=== PATIENT | female | born 1995 | race Caucasian/White ===

== ENCOUNTER 2018-12-16 19:00 | Inpatient (IN) | payer SELFPAY ==
[2018-12-16 19:32] VITALS: BMI 21.0
--- NOTE | 2018-12-16 19:32 | PDOC ---
Rapid Medical Evaluation Chief Complaint: SIRS, Suspected/Possible Medical Evaluation: Allergies Allergy/AdvReac Type Severity Reaction Status Date / Time No Known Allergies Allergy Verified 12/16/18 19:26 I have performed a brief in-person evaluation of this patient. The patient presents with a chief complaint of: c/o fever, upper abdominal pain and hematuria x 3 days Pertinent physical exam findings: appears sick, +R cva tenderness I have ordered the following: labs, ivf The patient will proceed to the ED for further evaluation. 12/16/18 19:29
[2018-12-16] MEDS ORDERED: ACETAMINOPHEN 1000 MG/100 ML VIAL (NON FORMULARY) IVPB ONE (19:33)
[2018-12-16] MEDS ORDERED: SODIUM CHLORIDE 1,000 ML IV STA (19:33)
[2018-12-16] MEDS ORDERED: ACETAMINOPHEN INJECTION 100 ML IVPB ONE (20:16)
[2018-12-16 20:40] LABS: BASO % 0.5 % (0-2.0); EOS % 0.1 % (0-4.5); HEMATOCRIT 35.3 % (32.4-45.2); HEMOGLOBIN 11.3 GM/dL (10.7-15.3); MCH 25.5 pg (25.7-33.7); MEAN CELL VOLUME 79.6 fl (80-96); MEAN PLT VOLUME 7.9 fl (7.5-11.1); NEUT % 85.4 % (42.8-82.8); PLATELET COUNT 272 K/MM3 (134-434); RBC 4.43 M/mm3 (3.60-5.2); RDW 15.1 % (11.6-15.6); WHITE BLOOD COUNT 14.9 K/mm3 (4.0-10.0)
[2018-12-16 20:57] LABS: EPI CELLS 2.2 /HPF (0-5/HPF); HYALINE CASTS 47 /lpf (0-8); URINE APPEARANCE TURBID; URINE BACTERIA 5835.3 /hpf (NEGATIVE); URINE BILIRUBIN NEGATIVE (NEGATIVE); URINE COLOR YELLOW; URINE GLUCOSE (UA) NEGATIVE (NEGATIVE); URINE KETONE 2+ (NEGATIVE); URINE LEUK ESTERASE 2+ (NEGATIVE); URINE NITRITE POSITIVE (NEGATIVE); URINE PROTEIN 1+ (NEGATIVE); URINE RBC 18 /hpf (0-4); URINE UROBILINOGEN 0.2 mg/dL (0.2-1.0); URINE WBC 179 /hpf (0-5)
[2018-12-16 21:14] LABS: ALBUMIN 3.9 g/dl (3.4-5.0); BILIRUBIN,TOTAL 0.4 mg/dL (0.2-1); BLOOD UREA NITROGEN 8.4 mg/dL (7-18); CALCIUM 8.9 mg/dL (8.5-10.1); CREATININE 0.9 mg/dL (0.55-1.3); POTASSIUM 3.7 mmol/L (3.5-5.1); TOT PROT 7.6 g/dl (6.4-8.2)
--- NOTE | 2018-12-16 21:17 | PDOC ---
Attending Attestation - Resident Resident Name: Davy Estrella - ED Attending Attestation I have performed the following: I have examined & evaluated the patient, The case was reviewed & discussed with the resident, I agree w/resident's findings & plan - HPI HPI: 12/16/18 23:24 see resident hpi - Physicial Exam PE: 12/16/18 23:24 see resident hpi - Medical Decision Making 12/16/18 23:24 22-year-old female with fever or flank pain and suprapubic pain CT scan consistent with cystitis IV fluid 2 L bolus as well as Zosyn administered in the emergency department In reevaluation at 11:24 PM patient is feeling much better with some residual abdominal tenderness Plan for lactic acid review and pelvic exam for further evaluation Ultrasound as needed Due to patient's age and improvement she will likely be discharged home pending results
[2018-12-16] MEDS ORDERED: PIPERACILLIN/TAZOB 4.5 GM 4.5 GM in DEXTROSE 5%-WATER 100 ML IVPB ONE ×2 (21:32→23:15)
[2018-12-16] MEDS ORDERED: LACTATED RINGERS SOLUTION 1000 ML INFUS.BAG IV ONE (21:32)
--- NOTE | 2018-12-16 21:38 | PDOC ---
History of Present Illness - General Chief Complaint: SIRS, Suspected/Possible Stated Complaint: FEVER/HEADACHE/ABD/PAIN Time Seen by Provider: 12/16/18 19:29 - History of Present Illness Initial Comments: 12/16/18 21:34 22f with pmh presents with headache, body aches, abdominal pain, vomiting, dysuria and hematuria for the past 3 days. In addition she endorses one episode of vomiting. Last moved her bowels 2 days ago. lmp: December 05. Past History - Past Medical History Allergies/Adverse Reactions: Allergies Allergy/AdvReac Type Severity Reaction Status Date / Time No Known Allergies Allergy Verified 12/16/18 19:26 Home Medications: Ambulatory Orders NK [No Known Home Medication] 12/16/18 COPD: No - Suicide/Smoking/Psychosocial Hx Smoking History: Never smoked Review of Systems - Review of Systems Able to Perform ROS?: Yes Is the patient limited Chinese proficient: No Constitutional: Yes: Chills, Fever HEENTM: No: Symptoms Reported Respiratory: No: Symptoms reported Cardiac (ROS): No: Symptoms Reported ABD/GI: Yes: See HPI : No: Symptoms Reported Musculoskeletal: No: Symptoms Reported Integumentary: No: Symptoms Reported Neurological: No: Symptoms reported All Other Systems: Reviewed and Negative *Physical Exam - Vital Signs Last Vital Signs Temp Pulse Resp BP Pulse Ox 102.9 F H 138 H 18 125/72 100 12/16/18 19:27 12/16/18 19:27 12/16/18 19:27 12/16/18 19:27 12/16/18 19:27 - Physical Exam General Appearance: Yes: Nourished, Appropriately Dressed. No: Apparent Distress HEENT: positive: EOMI, CECILIA, Normal ENT Inspection Respiratory/Chest: positive: Lungs Clear, Normal Breath Sounds. negative: Chest Tender, Respiratory Distress Cardiovascular: positive: Tachycardia Female Pelvic Exam: positive: normal external exam, CMT (questionable as everything was tender. ), discharge (bloody), vaginal bleeding, other ( generalized vaginal tenderness. ) Gastrointestinal/Abdominal: positive: Normal Bowel Sounds, Tender (across lower abdomen), Flat, Soft Musculoskeletal: positive: CVA Tenderness (R) Extremity: positive: Normal Capillary Refill, Normal Inspection, Normal Range of Motion Integumentary: positive: Normal Color, Warm, Diaphoresis Neurologic: positive: Fully Oriented, Alert, Normal Mood/Affect, Normal Response ED Treatment Course - LABORATORY CBC & Chemistry Diagram: 12/16/18 20:30 12/16/18 20:30 - ADDITIONAL ORDERS Additional order review: Laboratory Results 12/16/18 12/16/18 12/16/18 20:30 20:30 20:30 Sodium 137 Potassium 3.7 Chloride 100 Carbon Dioxide 25 Anion Gap 11 BUN 8.4 Creatinine 0.9 Est GFR (CKD-EPI)AfAm 106.68 Est GFR (CKD-EPI)NonAf 92.04 Random Glucose 106 Calcium 8.9 Total Bilirubin 0.4 AST 15 ALT 15 Alkaline Phosphatase 73 Total Protein 7.6 Albumin 3.9 Urine Color Yellow Urine Appearance Turbid Urine pH 5.0 Ur Specific [place] 1.024 Urine Protein 1+ H Urine Glucose (UA) Negative Urine Ketones 2+ H Urine Blood 3+ H Urine Nitrite Positive H Urine Bilirubin Negative Urine Urobilinogen 0.2 Ur Leukocyte Esterase 2+ H Urine WBC (Auto) 179 Urine RBC (Auto) 18 Urine Casts (Auto) 47 U Epithel Cells (Auto) 2.2 Urine Bacteria (Auto) 5835.3 Urine HCG, Qual Negative 12/16/18 20:30 RBC 4.43 MCV 79.6 L MCHC 32.0 RDW 15.1 MPV 7.9 Neutrophils % 85.4 H Lymphocytes % 6.0 L Monocytes % 8.0 Eosinophils % 0.1 Basophils % 0.5 - RADIOLOGY Radiology Studies Ordered: Category Date Time Status SPIRAL- RENAL-STONE CT [CT] Stat CT Scan 12/16/18 21:31 Ordered - Medications Given in the ED: ED Medications Discontinued Medications Generic Name Dose Route Start Last Admin Trade Name Freq PRN Reason Stop Dose Admin Acetaminophen 1,000 mg 12/16/18 19:33 12/16/18 20:33 Ofirmev Injection - IVPB 12/16/18 19:34 1,000 mg ONCE ONE Administration Sodium Chloride 1,000 mls @ 1,000 mls/hr 12/16/18 19:33 12/16/18 20:33 Normal Saline - IV 12/16/18 20:32 1,000 mls/hr ASDIR STA Administration Medical Decision Making - Medical Decision Making 12/16/18 22:33 22F septic, septic order set ordered. POCUS at bedside didn;tshow evidence of Pelvic free lfuid of hydronephrosis or kidney stones. Will obtain spiral CT. 12/16/18 22:[address] evidence of urolithiasis or hydronephrosis. A 2 mm calcification is seen within the left inferior pelvis adjacent to the ureterovesical junction probably representing an incidental phlebolith, less likely a nonobstructing calculus. Correlate clinically. If clinically indicated additional evaluation utilizing multiphase contrast-enhanced CT/CT urography may be performed. Mild diffuse urinary bladder wall thickening is noted which may be on the basis of acute or chronic cystitis. Clinical/laboratory correlation is suggested. Will treat with ceftriaxone and fluid. 12/16/18 23:47 Pelvic exam was performed to r/o PID due to underwhelming ct read. Generalized exquisite vaginal tenderness during the exam Sending straight cathed UA/UC. If urine is clean, UTi will be ruled out and PID will be treated. 12/17/18 00:11 Patient signed out to Dr. Vargas. *DC/Admit/Observation/Transfer Diagnosis at time of Disposition: Sepsis - Referrals - Patient Instructions - Post Discharge Activity
[2018-12-16] MEDS ORDERED: CEFTRIAXONE 500 MG in DEXTROSE 5%-WATER - 50 ML IVPB ONE (23:10)
--- NOTE | 2018-12-17 00:14 | PDOC ---
*Physical Exam - Vital Signs Last Vital Signs Temp Pulse Resp BP Pulse Ox 98.8 F 86 19 105/67 98 12/16/18 23:09 12/16/18 23:09 12/16/18 23:09 12/16/18 23:12/16/18 23:09 - Physical Exam Comments: 12/17/18 04:03 PE: GENERAL: Awake, alert, and fully oriented, in no acute distress HEAD: No signs of trauma, normocephalic, atraumatic EYES: PERRLA, EOMI, sclera anicteric, conjunctiva clear ENT: Auricles normal inspection, hearing grossly normal, nares patent, oropharynx clear without exudates. Moist mucosa NECK: Normal ROM, supple, no lymphadenopathy, JVD, or masses LUNGS: No distress, speaks full sentences, clear to auscultation bilaterally HEART: Regular rate and rhythm, normal S1 and S2, no murmurs, rubs or gallops, peripheral pulses normal and equal bilaterally. ABDOMEN: Lower abdomen tenderness. Soft, normoactive bowel sounds. No guarding , no rebound. No masses EXTREMITIES : Normal inspection, Normal range of motion, no edema. No clubbing or cyanosis NEUROLOGICAL: Cranial nerves II through XII grossly intact. Normal speech, normal gait, no focal sensorimotor deficits SKIN: Warm, Dry, normal turgor, no rashes or lesions noted ED Treatment Course - LABORATORY CBC & Chemistry Diagram: 12/16/18 20:30 12/16/18 20:30 - ADDITIONAL ORDERS Additional order review: Laboratory Results 12/16/18 12/16/18 12/16/18 23:00 20:30 20:30 Sodium Potassium Chloride Carbon Dioxide Anion Gap BUN Creatinine Est GFR (CKD-EPI)AfAm Est GFR (CKD-EPI)NonAf Random Glucose Lactic Acid 0.9 Calcium Total Bilirubin AST ALT Alkaline Phosphatase Total Protein Albumin Urine Color Yellow Urine Appearance Turbid Urine pH 5.0 Ur Specific [place] 1.024 Urine Protein 1+ H Urine Glucose (UA) Negative Urine Ketones 2+ H Urine Blood 3+ H Urine Nitrite Positive H Urine Bilirubin Negative Urine Urobilinogen 0.2 Ur Leukocyte Esterase 2+ H Urine WBC (Auto) 179 Urine RBC (Auto) 18 Urine Casts (Auto) 47 U Epithel Cells (Auto) 2.2 Urine Bacteria (Auto) 5835.3 Urine HCG, Qual Negative 12/16/18 20:30 Sodium 137 Potassium 3.7 Chloride 100 Carbon Dioxide 25 Anion Gap 11 BUN 8.4 Creatinine 0.9 Est GFR (CKD-EPI)AfAm 106.68 Est GFR (CKD-EPI)NonAf 92.04 Random Glucose 106 Lactic Acid Calcium 8.9 Total Bilirubin 0.4 AST 15 ALT 15 Alkaline Phosphatase 73 Total Protein 7.6 Albumin 3.9 Urine Color Urine Appearance Urine pH Ur Specific [place] Urine Protein Urine Glucose (UA) Urine Ketones Urine Blood Urine Nitrite Urine Bilirubin Urine Urobilinogen Ur Leukocyte Esterase Urine WBC (Auto) Urine RBC (Auto) Urine Casts (Auto) U Epithel Cells (Auto) Urine Bacteria (Auto) Urine HCG, Qual 12/16/18 20:30 RBC 4.43 MCV 79.6 L MCHC 32.0 RDW 15.1 MPV 7.9 Neutrophils % 85.4 H Lymphocytes % 6.0 L Monocytes % 8.0 Eosinophils % 0.1 Basophils % 0.5 - Medications Given in the ED: ED Medications Discontinued Medications Generic Name Dose Route Start Last Admin Trade Name Donte PRN Reason Stop Dose Admin Acetaminophen 1,000 mg 12/16/18 19:33 12/16/18 20:33 Ofirmev Injection - IVPB 12/16/18 19:34 1,000 mg ONCE ONE Administration Sodium Chloride 1,000 mls @ 1,000 mls/hr 12/16/18 19:33 12/16/18 20:33 Normal Saline - IV 12/16/18 20:32 1,000 mls/hr ASDIR STA Administration Medical Decision Making - Medical Decision Making 12/17/18 03:59 Sign out received from Dr. Estrella. 22 y/o F with no PMH p/w 3 days of headache, abdominal pain, dysuria, hematuria , vomiting, initially febrile and tachycardic with severe cervical motion tenderness and pooling blood in the vaginal vault on pelvic exam, concerning for UTI sepsis vs PID. Plan: UA (repeat, with straight cath) --- Second UA unremarkable, given concern for PID, possible abscess plan for TVUS. --- TVUS negative for acute process. 12/17/18 04:[address] Mchugh - patient admitted for PID, sepsis. *DC/Admit/Observation/Transfer Diagnosis at time of Disposition: Sepsis - Referrals - Patient Instructions - Post Discharge Activity
[2018-12-17 00:32] LABS: EPI CELLS 4.6 /HPF (0-5/HPF); HYALINE CASTS 2 /lpf (0-8); PH,URINE 5.5 (5.0-8.0); URINE APPEARANCE CLEAR; URINE BACTERIA 338.8 /hpf (NEGATIVE); URINE BILIRUBIN NEGATIVE (NEGATIVE); URINE COLOR YELLOW; URINE GLUCOSE (UA) NEGATIVE (NEGATIVE); URINE KETONE 2+ (NEGATIVE); URINE LEUK ESTERASE 1+ (NEGATIVE); URINE NITRITE NEGATIVE (NEGATIVE); URINE PROTEIN NEGATIVE (NEGATIVE); URINE RBC 1 /hpf (0-4); URINE UROBILINOGEN 0.2 mg/dL (0.2-1.0); URINE WBC 14 /hpf (0-5)
[2018-12-17] MEDS: ACETAMINOPHEN 325 MG TABLET (FP) PO PRN ×2 (09:15→16:59)
[2018-12-17] MEDS: LACTATED RINGERS SOLUTION 1,000 ML/1,000 ML INFUS.BAG IV SCH ×2 (09:15→16:59)
[2018-12-17] MEDS ORDERED: ACETAMINOPHEN 325 MG TABLET (FP) ONE (09:29)
--- NOTE | 2018-12-17 10:50 | EKG ---
Test Reason : Blood Pressure : / mmHG Vent. Rate : 130 BPM Atrial Rate : 130 BPM P-R Int : 140 ms QRS Dur : 070 ms QT Int : 290 ms P-R-T Axes : 056 065 019 degrees QTc Int : 426 ms SINUS TACHYCARDIA T WAVE ABNORMALITY, CONSIDER ANTERIOR ISCHEMIA ABNORMAL ECG NO PREVIOUS ECGS AVAILABLE Confirmed by Deangelo Carrasco MD ([id number]) on 12/17/2018 10:50:13 AM Referred By: Confirmed By:Deangelo Carrasco MD
[2018-12-18] MEDS: ACETAMINOPHEN 325 MG TABLET (FP) PO PRN ×3 (00:40→19:32)
[2018-12-18] MEDS: LACTATED RINGERS SOLUTION 1,000 ML/1,000 ML INFUS.BAG IV SCH ×3 (00:41→19:33)
--- NOTE | 2018-12-18 16:01 | HP ---
Admitting History and Physical - Admission Chief Complaint: Abdominal pain History of Present Illness: 22 yo Para 0, LMP 12/05/18, presented to ER c/o lower abdominal pain. She denies any nausea nor vomiting. She's sexually active without barrier contraception. Pelvic sonogram failed to show any pathology. But urinalysis showed evidence of nitrite. Patient was admitted for UTI and pelvic inflammatory disease. History Source: Patient Limitations to Obtaining History: No Limitations - Past Medical History ...LMP: 12/05/18 ...: No ...Para: 0 - Past Surgical History Past Surgical History: Yes: None - Smoking History Smoking history: Never smoked - Alcohol/Substance Use Hx Alcohol Use: No Home Medications - Allergies Allergies/Adverse Reactions: Allergies Allergy/AdvReac Type Severity Reaction Status Date / Time No Known Allergies Allergy Verified 12/16/18 19:26 - Home Medications Home Medications: Ambulatory Orders NK [No Known Home Medication] 12/17/18 Family Disease History - Family Disease History Family History: Unremarkable Review of Systems - Review of Systems Constitutional: reports: Fever Eyes: reports: No Symptoms HENT: reports: No Symptoms Neck: reports: No Symptoms Cardiovascular: reports: No Symptoms Respiratory: reports: No Symptoms Gastrointestinal: reports: No Symptoms Genitourinary: reports: No Symptoms Breasts: reports: No Symptoms Reported Musculoskeletal: reports: No Symptoms Integumentary: reports: No Symptoms Neurological: reports: No Symptoms Endocrine: reports: No Symptoms Hematology/Lymphatic: reports: No Symptoms Psychiatric: reports: No Symptoms Pain Intensity: 4 Physical Examination Vital Signs: Vital Signs Temperature 98.1 F 12/18/18 13:33 Pulse Rate 103 H 12/18/18 13:33 Respiratory Rate 18 12/18/18 13:33 Blood Pressure 105/66 12/18/18 13:33 O2 Sat by Pulse Oximetry (%) 100 12/18/18 09:00 Constitutional: Yes: Calm, Mild Distress Eyes: Yes: Conjunctiva Clear HENT: Yes: Atraumatic Neck: Yes: Supple, Trachea Midline Respiratory: Yes: Regular Gastrointestinal: Yes: Normal Bowel Sounds Musculoskeletal: Yes: WNL Neurological: Yes: Alert, Oriented ...Motor Strength: WNL Psychiatric: Yes: Alert, Oriented Labs: CBC, BMP 12/16/18 20:30 12/16/18 20:30 Problem List - Problems (1) Urinary tract infection Code(s): N39.0 - URINARY TRACT INFECTION, SITE NOT SPECIFIED Qualifiers: Encounter type: initial encounter (2) Pelvic inflammatory disease (PID) Code(s): N73.9 - FEMALE PELVIC INFLAMMATORY DISEASE, UNSPECIFIED Assessment/Plan Pelvic inflammatory disease Urinary tract infection Admit Continue IVF Tylenol PRN fever IV cefoxitin Doxycycline Regular diet
[2018-12-18] MEDS ORDERED: CEFOTETAN DISODIUM 1 GM in DEXTROSE 5%-WATER - 100 ML IVPB SCH (16:30)
[2018-12-18 17:06] LABS: BASO % 0.5 % (0-2.0); EOS % 0.8 % (0-4.5); HEMATOCRIT 33.5 % (32.4-45.2); HEMOGLOBIN 10.6 GM/dL (10.7-15.3); MCH 25.3 pg (25.7-33.7); MCHC 31.8 g/dl (32.0-36.0); MEAN CELL VOLUME 79.5 fl (80-96); MEAN PLT VOLUME 7.4 fl (7.5-11.1); MONO % 15.7 % (3.8-10.2); PLATELET COUNT 278 K/MM3 (134-434); RBC 4.21 M/mm3 (3.60-5.2); RDW 15.1 % (11.6-15.6); WHITE BLOOD COUNT 9.9 K/mm3 (4.0-10.0)
[2018-12-18 17:38] LABS: BLOOD UREA NITROGEN 5.2 mg/dL (7-18); CALCIUM 8.9 mg/dL (8.5-10.1); CREATININE 0.6 mg/dL (0.55-1.3); POTASSIUM 3.7 mmol/L (3.5-5.1)
[2018-12-18] MEDS: DOXYCYCLINE HYCLATE 100 MG CAPSULE PO SCH (18:44)
[2018-12-18] MEDS: CEFOXITIN SODIUM 1 GM in DEXTROSE 5%-WATER 100 ML IVPB SCH ×2 (18:44→22:39)
[2018-12-18] MEDS ORDERED: PT OWN MED DRAWER 7, Y5N ONE (18:52)
[2018-12-19] MEDS ORDERED: PT OWN MED DRAWER 7, Y5N ONE ×2 (01:45→14:56)
[2018-12-19] MEDS: CEFOXITIN SODIUM 1 GM in DEXTROSE 5%-WATER 100 ML IVPB SCH ×3 (03:28→14:57)
[2018-12-19] MEDS: LACTATED RINGERS SOLUTION 1,000 ML/1,000 ML INFUS.BAG IV SCH ×2 (09:58→20:44)
[2018-12-19] MEDS: DOXYCYCLINE HYCLATE 100 MG CAPSULE PO SCH ×2 (09:58→17:17)
--- NOTE | 2018-12-19 10:29 | PN ---
Progress Note, Physician History of Present Illness: 22 yo Para 0, LMP 12/05/18, presented to ER c/o lower abdominal pain. Patient was admitted for UTI and pelvic inflammatory disease. She's seen and evaluated. Doing well. She's afebrile. She desires discharge home. - Current Medication List Current Medications: Active Medications Acetaminophen (Tylenol -) 650 mg PO Q4H PRN PRN Reason: FEVER Last Admin: 12/18/18 19:32 Dose: 650 mg Doxycycline Hyclate (Vibramycin -) 100 mg PO BID@1000,1800 ERIKA Last Admin: 12/19/18 09:58 Dose: 100 mg Lactated Ringer's (Lactated Ringers Solution) 1,000 ml in 1,000 mls @ 125 mls/ hr IV ASDIR ERIKA Last Admin: 12/19/18 09:58 Dose: 125 mls/hr Cefoxitin Sodium 1 gm/ (Dextrose) 100 mls @ 200 mls/hr IVPB Q6H-IV ERIKA Stop: 12/19/18 17:29 Last Admin: 12/19/18 09:57 Dose: 200 mls/hr Cefoxitin Sodium 1 gm/ (Dextrose) 100 mls @ 200 mls/hr IVPB Q6H-IV ERIKA - Objective Vital Signs: Vital Signs Temperature 98.9 F 12/19/18 08:51 Pulse Rate 99 H 12/19/18 08:51 Respiratory Rate 20 12/19/18 08:52 Blood Pressure 135/94 12/19/18 08:51 O2 Sat by Pulse Oximetry (%) 100 12/19/18 08:52 Constitutional: Yes: No Distress Eyes: Yes: Conjunctiva Clear HENT: Yes: Atraumatic Neck: Yes: Supple Cardiovascular: Yes: Regular Rate and Rhythm Respiratory: Yes: Regular Gastrointestinal: Yes: Normal Bowel Sounds Genitourinary: Yes: WNL Breast(s): Yes: WNL Musculoskeletal: Yes: WNL Extremities: Yes: WNL Neurological: Yes: Alert, Oriented ...Motor Strength: WNL Psychiatric: Yes: Alert, Oriented Labs: CBC, BMP 12/18/18 16:45 12/18/18 16:45 Problem List - Problems (1) Urinary tract infection Code(s): N39.0 - URINARY TRACT INFECTION, SITE NOT SPECIFIED Qualifiers: Encounter type: initial encounter (2) Pelvic inflammatory disease (PID) Code(s): N73.9 - FEMALE PELVIC INFLAMMATORY DISEASE, UNSPECIFIED Assessment/Plan Pelvic inflammatory disease Urinary tract infection Consider D/C home on PO antibiotic
--- NOTE | 2018-12-19 10:35 | DS ---
Physical Examination Vital Signs: Vital Signs Temperature 98.9 F 12/19/18 08:51 Pulse Rate 99 H 12/19/18 08:51 Respiratory Rate 20 12/19/18 08:52 Blood Pressure 135/94 12/19/18 08:51 O2 Sat by Pulse Oximetry (%) 100 12/19/18 08:52 Constitutional: Yes: No Distress Eyes: Yes: Conjunctiva Clear HENT: Yes: Atraumatic Neck: Yes: Supple Cardiovascular: Yes: Regular Rate and Rhythm Respiratory: Yes: Regular Gastrointestinal: Yes: Normal Bowel Sounds, Soft. No: Vomiting Breast(s): Yes: WNL Neurological: Yes: Alert, Oriented Psychiatric: Yes: Alert, Oriented Labs: CBC, BMP 12/18/18 16:45 12/18/18 16:45 Discharge Summary Reason For Visit: ACUTE PELVIC INFLAMMATORY DISEASE,SEPSIS Current Active Problems Pelvic inflammatory disease (PID) (Acute) Sepsis (Acute) Urinary tract infection (Acute) Procedures: Principal: None Hospital Course: Patient admitted with diagnosis of PID and UTI. She was treated with IV antibiotic and discharge home with PO antibiotic. Condition: Good - Instructions Diet, Activity, Other Instructions: Regular diet Continue PO antibiotic F/U with [facility] as outpatient Disposition: HOME - Home Medications Comprehensive Discharge Medication List: Ambulatory Orders NK [No Known Home Medication] 12/17/18
[2018-12-19] MEDS ORDERED: CEFOXITIN SODIUM 1 GM in DEXTROSE 5%-WATER 100 ML IVPB SCH (21:00)
[2018-12-20] MEDS: DOXYCYCLINE HYCLATE 100 MG CAPSULE PO SCH (09:40)
[2018-12-20] MEDS: LACTATED RINGERS SOLUTION 1,000 ML/1,000 ML INFUS.BAG IV SCH (09:41)
[2018-12-20 14:48] VITALS: BP 131/62; PULSE 92; TEMP 98.2
== END 2018-12-20 14:17 | disposition home or self-care (01) | DRG 531 ==
LOC: JER 19:00 → JERBED 12-17 04:16 → JSAMEDAYSX 12-17 16:08 → J6S 12-17 16:18
PROVIDERS: ADMIT Obstetrics & Gynecology; ATTEND Obstetrics & Gynecology
DX: N73.9 Female pelvic inflammatory disease, unspecified (principal); N39.0 Urinary tract infection, site not specified
CPT/HCPCS: 36415; 74176-TC; 76830-TC; 80048; 80053; 81003; 83605; 84703; 85025; 87086; 87186; 93005; 93010; 99284-25; J0131; J7030